=== PATIENT | female | born 1990 | race Caucasian/White ===

== ENCOUNTER 2016-10-14 15:00 | Emergency (ER) | payer SELFPAY ==
[~2016-10-14] VITALS: Ht 157.5 cm; Wt 55.8 kg
[2016-10-14 16:35] VITALS: BP 117/82
--- NOTE | 2016-10-14 18:10 | Emergency Room Report ---
History of Present Illness General Chief Complaint: Skin Rash/Abscess Source: Patient Present Illness HPI The patient is a 26-year-old female presenting for a total body rash which began 3 months prior. The patient states that her [place] with a rash before symptoms began. It is described as intensely itchy. She denies seeing any insects or any other cause for the lesions. She has not tried any medications for the symptoms as she is against using any medication. She denies any pain. She denies other symptoms such as N, V, F, chills, UREÑA, dizziness, swelling Allergies: Coded Allergies: No Known Allergies (Unverified , 10/14/16) Patient History Past Medical History: see triage record Pertinent Family History: none Last Menstrual Period: 10/11/16 Now: No : 0 Para: 0 Reviewed Nursing Documentation: PMH: Agreed, PSxH: Agreed Nursing Documentation-PM Past Medical History: No Stated History Review of Systems All Other Systems: negative except mentioned in HPI Physical Exam Vital Signs Date Time Temp Pulse Resp B/P Pulse Ox O2 Delivery O2 Flow Rate FiO2 10/14/16 15:24 98.2 65 17 119/79 99 Room Air Sp02 EP Interpretation: reviewed, normal General Appearance: no apparent distress, alert, GCS 15, non-toxic Head: normocephalic, atraumatic ENT: hearing grossly normal, normal pharynx, no angioedema, normal voice Neck: full range of motion, supple/symm/no masses Musculoskeletal: back normal, gait/station normal, normal range of motion, non- tender Neurologic: alert, oriented x3, responsive, motor strength/tone normal, sensory intact, normal gait, speech normal Psychiatric: judgement/insight normal, memory normal, mood/affect normal, no suicidal/homicidal ideation Skin: warm/dry, normal turgor, rash - There are lesions of the neck, chest, extremeties, and between webspaces. There is burrowing noted with excoriation lee Lymphatic: no adenopathy Medical Decision Making PA Attestation Dr. Butler is my supervising physician. Patient management was discussed with my supervising physician Diagnostic Impression: Primary Impression: Scabies ER Course The patient is a 26-year-old female presenting for a total body rash which began 3 months prior. Ddx considered include but not limited to scabies, insect bite, contact dermatitis, eczema, cellulitis PE: NAD There are erythematous lesions with burrowing on extremities and in web spaces She is told she will need to take permethrin but she refuses. She understands the consequences and risks. She refuses using any medication ER precautions given Last Vital Signs Date Time Temp Pulse Resp B/P Pulse Ox O2 Delivery O2 Flow Rate FiO2 10/14/16 16:35 98.3 63 15 117/82 98 Room Air Status: improved Disposition: HOME, SELF-CARE Condition: Stable Patient Instructions: Rash, Pruritus, Scabies, Pediatric Additional Instructions: I discussed my findings with the patient. All questions and concerns have been answered. Treatment and medication compliance have been addressed. I advised the patient that they need to follow up with PMD in 3-5 days. Return to ED if symptoms worsen, new symptoms arise, or if needed for any reason. Patient verbalized understanding of discharge instructions. The patient has refused treatment at this time and understands the risks. AVERY TERRY Oct 14, 2016 18:10
== END 2016-10-14 15:45 | disposition home or self-care (01) ==
LOC: EMR 15:25
DX: B86 Scabies (principal)
CPT/HCPCS: 99282